=== PATIENT | female | born 1995 | race Caucasian/White ===

== ENCOUNTER 2018-08-30 14:37 | Emergency (ER) | payer SELFPAY ==
[~2018-08-30] VITALS: Ht 162.6 cm; Wt 91.6 kg
--- NOTE | 2018-08-30 14:57 | ED Abdominal Pain ---
General Chief Complaint: Abdominal/GI Problems Stated Complaint: SIDE/BACK PAIN Nursing Triage Note: PT REPORTS RIGHT FLANK PAIN THAT STARTED 3-4, NOW HAD BILATERAL FLANK PAIN AND ABDOMINAL PAIN. PT ALSO REPORTS BODY ACHES, CHILLS BUT DENIES FEVER. Sepsis Screen: No Definite Risk Source of Information: Patient Exam Limitations: No Limitations History of Present Illness Date Seen by Provider: Aug 30, 2018 Time Seen by Provider: 14:55 Initial Comments to ER with reports of right flank pain that began 3-4 days ago. She's had chills but no fever, no nausea or vomiting. At the onset of this she had some dysuria including urinary frequency but nothing since then. One of her family members had some Lasix, she took one of those this morning thinking that might help (unclear to me why). Timing/Duration: 2-3 Days Severity/Quality: Moderate Location: Flank Radiation: No Radiation Activities at Onset: None Associated Symptoms: Fever/Chills; No Nausea/Vomiting Allergies and Home Medications Allergies Coded Allergies: No Known Drug Allergies (Unverified , 08/30/18) Patient Home Medication List Home Medication List Reviewed: Yes Review of Systems Review of Systems Constitutional: see HPI, chills EENTM: No Symptoms Reported Respiratory: No Symptoms Reported Cardiovascular: No Symptoms Reported Gastrointestinal: See HPI Genitourinary: See HPI, Flank Pain Musculoskeletal: no symptoms reported Skin: no symptoms reported Psychiatric/Neurological: No Symptoms Reported Endocrine: No Symptoms Reported Hematologic/Lymphatic: No Symptoms Reported Past Hwwxcrd-Ydpbpi-Oclrfq Hx Patient Social History Alcohol Use: Occasionally Uses Recreational Drug Use: Yes Drug of Choice: MARIJUANA Smoking Status: Current Everyday Smoker Recent Foreign Travel: No Contact w/Someone Who Travel: No Recent Infectious Disease Expo: No Recent Hopitalizations: No Seasonal Allergies Seasonal Allergies: No Past Medical History Gallbladder, Orthopedic Respiratory: Yes Asthma Cardiac: No Neurological: No Genitourinary: Yes Kidney Stones Gastrointestinal: No Musculoskeletal: No Endocrine: No HEENT: No Cancer: No Psychosocial: Yes Bipolar Integumentary: No Blood Disorders: No Physical Exam Vital Signs Vital Signs - First Documented 08/30/18 14:41 Temp 98.2 Pulse 120 Resp 16 B/P (MAP) 119/67 (84) Pulse Ox 99 Capillary Refill : Less Than 3 Seconds Height/Weight/BMI Height: 5'4.00" Weight: 202lbs. oz. [id number]; BMI Method:Stated General Appearance: WD/WN, no apparent distress HEENT: PERRL/EOMI, normal ENT inspection Respiratory: no respiratory distress, no accessory muscle use Cardiovascular: no murmur, tachycardia Gastrointestinal: normal bowel sounds, soft, tenderness Extremities: normal range of motion, non-tender Neurologic/Psychiatric: alert, normal mood/affect, oriented x 3 Skin: normal color, warm/dry Progress/Results/Core Measures Results/Orders Lab Results Laboratory Tests Test 08/30/18 14:50 08/30/18 15:00 Range/Units Urine Test NEGATIVE NEGATIVE White Blood Count 15.9 H 4.3-11.0 10^3/uL Red Blood Count 5.00 4.35-5.85 10^6/uL Hemoglobin 15.4 11.5-16.0 G/DL Hematocrit 44 35-52 % Mean Corpuscular Volume 89 80-99 FL Mean Corpuscular Hemoglobin 31 25-34 PG Mean Corpuscular Hemoglobin Concent 35 32-36 G/DL Red Cell Distribution Width 12.2 10.0-14.5 % Platelet Count 256 130-400 10^3/uL Mean Platelet Volume 10.8 H 7.4-10.4 FL Neutrophils (%) (Auto) 73 42-75 % Lymphocytes (%) (Auto) 15 12-44 % Monocytes (%) (Auto) 11 0-12 % Eosinophils (%) (Auto) 1 0-10 % Basophils (%) (Auto) 0 0-10 % Neutrophils # (Auto) 11.7 H 1.8-7.8 X 10^3 Lymphocytes # (Auto) 2.3 1.0-4.0 X 10^3 Monocytes # (Auto) 1.7 H 0.0-1.0 X 10^3 Eosinophils # (Auto) 0.2 0.0-0.3 10^3/uL Basophils # (Auto) 0.0 0.0-0.1 10^3/uL Neutrophils % (Manual) 85 % Lymphocytes % (Manual) 7 % Monocytes % (Manual) 6 % Eosinophils % (Manual) 2 % Blood Morphology Comment NORMAL Urine Color YELLOW Urine Clarity SLIGHTLY CLOUDY Urine pH 6 5-9 Urine Specific [place] 1.010 L 1.016-1.022 Urine Protein NEGATIVE NEGATIVE Urine Glucose (UA) NEGATIVE NEGATIVE Urine Ketones 4+ H NEGATIVE Urine Nitrite NEGATIVE NEGATIVE Urine Bilirubin NEGATIVE NEGATIVE Urine Urobilinogen NORMAL NORMAL MG/DL Urine Leukocyte Esterase 3+ H NEGATIVE Urine RBC (Auto) 5+ H NEGATIVE Urine RBC 0-2 /HPF Urine WBC 50-100 H /HPF Urine Squamous Epithelial Cells 2-5 /HPF Urine Crystals NONE /LPF Urine Bacteria MODERATE H /HPF Urine Casts NONE /LPF Urine Mucus NEGATIVE /LPF Urine Culture Indicated YES Sodium Level 136 135-145 MMOL/L Potassium Level 3.8 3.6-5.0 MMOL/L Chloride Level 104 98-107 MMOL/L Carbon Dioxide Level 23 21-32 MMOL/L Anion Gap 9 5-14 MMOL/L Blood Urea Nitrogen 6 L 7-18 MG/DL Creatinine 0.69 0.60-1.30 MG/DL Estimat Glomerular Filtration Rate > 60 BUN/Creatinine Ratio 9 Glucose Level 87 70-105 MG/DL Calcium Level 10.0 8.5-10.1 MG/DL Corrected Calcium 8.5-10.1 MG/DL Total Bilirubin 0.8 0.1-1.0 MG/DL Aspartate Amino Transf (AST/SGOT) 57 H 5-34 U/L Alanine Aminotransferase (ALT/SGPT) 78 H 0-55 U/L Alkaline Phosphatase 121 40-136 U/L Total Protein 7.9 6.4-8.2 GM/DL Albumin 4.8 H 3.2-4.5 GM/DL My Orders Orders - DIANA MOBLEY APRN Ua Culture If Indicated (08/30/18 14:52) Cbc With Automated Diff (08/30/18 14:52) Comprehensive Metabolic Panel (08/30/18 14:52) Iv Heplock-Insert (Order) (08/30/18 14:52) Ns Iv 1000 Ml (Sodium Chloride 0.9%) (08/30/18 15:00) Ketorolac Injection (Toradol Injection) (08/30/18 15:00) Fentanyl Injection (Sublimaze Injection (08/30/18 15:00) Hcg,Qualitative Urine (08/30/18 15:09) Manual Differential (08/30/18 15:00) Ct Abd/Pelv W (Appendicitis) (08/30/18 15:21) Urine Culture (08/30/18 15:00) Ceftriaxone For Iv Use (Rocephin For I (08/30/18 15:30) Medications Given in ED Current Medications Medications Dose Ordered Sig/Jacinto Route Start Time Stop Time Status Last Admin Dose Admin Fentanyl Citrate 50 mcg ONCE ONCE IVP 08/30/18 15:00 08/30/18 15:01 DC 08/30/18 15:11 50 MCG Ketorolac Tromethamine 15 mg ONCE ONCE IVP 08/30/18 15:00 08/30/18 15:01 DC 08/30/18 15:17 15 MG Vital Signs/I&O 08/30/18 14:41 Temp 98.2 Pulse 120 Resp 16 B/P (MAP) 119/67 (84) Pulse Ox 99 Blood Pressure Mean: 84 Departure Impression Primary Impression: Pyelonephritis Disposition: HOME, SELF-CARE Condition: Stable Departure-Patient Inst. Decision time for Depature: 15:51 Referrals: NO,LOCAL PHYSICIAN (PCP) Primary Care Physician Patient Instructions: Kidney Infection Add. Discharge Instructions: . Pain medication and antibiotics as directed. Follow-up with your doctor next week. Follow-up with your doctor on Tuesday for recheck. Return to the emergency room for any high fevers, worsening painor other concerns.All discharge instructions reviewed with patient and/or family. Voiced understanding. Scripts Hydrocodone/Acetaminophen (Barton 5-325 Tablet) 1 Each Tablet 1 EACH PO Q6H PRN for PAIN-MODERATE MDD 10, #14 TAB do not fill unless antibiotic is also filled Prov: DIANA MOBLEY APRN 08/30/18 Ciprofloxacin HCl (Cipro) 500 Mg Tablet 500 MG PO BID, #14 TAB Prov: DIANA MOBLEY APRN 08/30/18 Work/School Note: Work Release Form Date Seen in the Emergency Department: Aug 30, 2018 Return to Work: Sep 02, 2018 Restrictions: No Restrictions DIANA MOBLEY APRN Aug 30, 2018 14:57
[2018-08-30] MEDS ORDERED: KETOROLAC 30 MG/ML VIAL IVP ONE (15:00)
[2018-08-30] MEDS ORDERED: fentaNYL INJECTION 100 MCG/2 ML AMP IVP ONE (15:00)
[2018-08-30] MEDS ORDERED: NS IV 1000 ML 1,000 ML IV SCH (15:00)
[2018-08-30 15:10] LABS: BASOPHILS % (AUTO) 0 % (0-10); EOSINOPHILS # (AUTO) 0.2 10^3/uL (0.0-0.3); EOSINOPHILS % (AUTO) 1 % (0-10); HEMATOCRIT 44 % (35-52); HEMOGLOBIN 15.4 G/DL (11.5-16.0); LYMPHOCYTES # (AUTO) 2.3 X 10^3 (1.0-4.0); LYMPHOCYTES % (AUTO) 15 % (12-44); MEAN CORPUSCULAR HEMOGLOBIN 31 PG (25-34); MEAN CORPUSCULAR HGB CONC 35 G/DL (32-36); MEAN CORPUSCULAR VOLUME 89 FL (80-99); MEAN PLATELET VOLUME 10.8 FL (7.4-10.4); MONOCYTES # (AUTO) 1.7 X 10^3 (0.0-1.0); MONOCYTES % (AUTO) 11 % (0-12); NEUTROPHILS # (AUTO) 11.7 X 10^3 (1.8-7.8); NEUTROPHILS % (AUTO) 73 % (42-75); PLATELET COUNT 256 10^3/uL (130-400); RED CELL DISTRIBUTION WIDTH 12.2 % (10.0-14.5); WHITE BLOOD COUNT 15.9 10^3/uL (4.3-11.0)
[2018-08-30 15:11] LABS: BILIRUBIN,URINE NEGATIVE (NEGATIVE); CLARITY,URINE SLIGHTLY CLOUDY; COLOR,URINE YELLOW; GLUCOSE, URINE (UA) NEGATIVE (NEGATIVE); KETONES,URINE 4+ (NEGATIVE); LEUKOCYTE ESTERASE ,URINE 3+ (NEGATIVE); NITRITE,URINE NEGATIVE (NEGATIVE); PH,URINE 6 (5-9); PROTEIN,URINE NEGATIVE (NEGATIVE); UROBILINOGEN,URINE NORMAL (NORMAL)
[2018-08-30 15:21] LABS: BACTERIA,URINE MODERATE /HPF; RBC,URINE 0-2 /HPF; WBC,URINE 50-100 /HPF
[2018-08-30 15:28] LABS: EOSINOPHILS % (MANUAL) 2 %; LYMPHOCYTES % (MANUAL) 7 %; MONOCYTES % (MANUAL) 6 %; NEUTROPHILS % (MANUAL) 85 %; RBC MORPH NORMAL
[2018-08-30] MEDS ORDERED: cefTRIAXone FOR IV USE 1,000 MG in WATER (STERILE) FOR INJECTION 10 ML IV ONE (15:30)
[2018-08-30 15:31] LABS: ALANINE AMINOTRANSFERASE 78 U/L (0-55); ALBUMIN 4.8 GM/DL (3.2-4.5); ALKALINE PHOSPHATASE 121 U/L (40-136); BILIRUBIN,TOTAL 0.8 MG/DL (0.1-1.0); BUN/CREATININE RATIO 9; CARBON DIOXIDE 23 MMOL/L (21-32); CHLORIDE 104 MMOL/L (98-107); CREATININE SERUM 0.69 MG/DL (0.60-1.30); GFR ESTIMATED > 60; GLUCOSE 87 MG/DL (70-105); POTASSIUM 3.8 MMOL/L (3.6-5.0); SODIUM 136 MMOL/L (135-145); TOTAL PROTEIN 7.9 GM/DL (6.4-8.2)
[2018-08-30] MEDS ORDERED: HYDR-4226 PO (15:54)
[2018-08-30] MEDS ORDERED: CIPR-225 PO (15:54)
--- NOTE | 2018-08-30 16:12 | Diagnostic Imaging Report ---
PROCEDURE: CT abdomen and pelvis with contrast, rule out appendicitis. TECHNIQUE: Multiple contiguous axial images were obtained through the abdomen and pelvis after the administration of intravenous contrast. INDICATION: Right lower quadrant and back pain, symptoms four days in duration. COMPARISON: I have no priors for comparison. FINDINGS: There is patchy hypoenhancement involving the mid to lower pole of the right kidney, most notably laterally. Correlate with urinalysis as the appearance raises the question of pyelonephritis. No abscess or drainable fluid collection is found. The left kidney is unremarkable. No radiodense stone at this oime-aegsolzr-socpmenq exam can be seen. The liver, spleen, adrenals, and pancreas are unremarkable. The gallbladder is surgically absent. There is no pathological bile duct dilatation. There is no appendicitis or diverticulitis. The uterus, adnexa, and urinary bladder are unremarkable with left ovarian follicular cyst at 2.4 cm. Urinary bladder is unremarkable but nearly completely empty. No mesenteric edema. No perienteric or pericolonic inflammatory changes. No bowel wall thickening. IMPRESSION: 1. Irregular patchy hypoenhancement involves portions of the right kidney at its mid to lower third laterally raising the question of pyelonephritis without abscess; correlate with urinalysis. Parenchymal ischemia is felt significantly less likely as the vascular structures all appeared normal, and there is no atherosclerotic disease apparent and this does not appear wedge configured. 2. Left ovarian cyst, likely a dominant follicle. 3. No other abnormality or additional potential acute findings. Dictated by: Dictated on workstation # [id number]
[2018-08-30] MEDS ORDERED: HOLD METFORMIN - RECEIVED CONTRAST 20 ML VIAL IV SCH (16:15)
[2018-08-30] MEDS ORDERED: IOHEXOL 350 MG/ML 100 ML (OMNIPAQUE 350) VIAL IV ONE (16:15)
[2018-08-30 16:30] VITALS: BP 122/73
== END 2018-08-30 16:30 | disposition home or self-care (01) ==
LOC: ER 14:39
DX: N12 Tubulo-interstitial nephritis, not specified as acute or chronic (principal); J45.909 Unspecified asthma, uncomplicated; F31.9 Bipolar disorder, unspecified; F12.10 Cannabis abuse, uncomplicated; F17.200 Nicotine dependence, unspecified, uncomplicated; Z87.442 Personal history of urinary calculi
CPT/HCPCS: 36415; 74177; 80053; 81000; 84703; 85007; 85027; 87077; 87088; 87186